=== PATIENT | female | born 1985 | race American Indian/Alaskan Native ===

== ENCOUNTER 2018-07-30 14:42 | Emergency (ER) | payer BC, OTHER ==
[2018-07-30 15:06] VITALS: BP 130/83; RESP 20; TEMP 98.2; O2SAT 99
[2018-07-30] MEDS ORDERED: Alum-Mag Hydrox-Simethicone Susp (30 mL) PO STA (15:30)
[2018-07-30] MEDS ORDERED: Alum-Mag Hydrox-Simethicone Susp (30 mL) ONE (15:35)
[2018-07-30 15:42] LABS: BASO # 0.1 K/uL (0.0-0.2); BASO % 1.2 % (0.0-2.0); EOS # 0.1 K/uL (0.0-0.7); EOS % 1.8 % (0.0-4.0); HEMOGLOBIN 11.8 g/dL (12.0-16.0); LYMPH # 2.4 K/uL (1.0-4.3); LYMPH % 44.2 % (20.0-40.0); MEAN CELL VOLUME 89.8 fl (81.0-99.0); MEAN CORPUSCULAR HEMOGLOBIN 28.9 pg (27.0-31.0); MEAN CORPUSCULAR HGB CONC 32.2 g/dL (33.0-37.0); MEAN PLATELET VOLUME 8.4 fl (7.2-11.7); MONO # 0.4 K/uL (0.0-0.8); MONO % 7.5 % (0.0-10.0); NEUT # 2.4 K/uL (1.8-7.0); NEUT % 45.3 % (50.0-75.0); NRBC % 0.1 % (0.0-0.0); RBC 4.07 Mil/uL (3.80-5.20); RED CELL DISTRIBUTION WIDTH 13.4 % (11.5-14.5); WHITE BLOOD COUNT 5.3 K/uL (4.8-10.8)
[2018-07-30 15:51] LABS: ALB/GLOB RATIO 1.1 (1.0-2.1); ALBUMIN 3.8 g/dL (3.5-5.0); ALT/SGPT 36 U/L (9-52); AST/SGOT 40 U/L (14-36); BLOOD UREA NITROGEN 15 mg/dl (7-17); CALCIUM 8.7 mg/dL (8.4-10.2); GFR NON-AFRICAN AMERICAN > 60; LIPASE 165 U/L (23-300)
--- NOTE | 2018-07-30 15:58 | ED PDOC ---
HPI: Abdomen Time Seen by Provider: 07/30/18 15:14 Chief Complaint (Nursing): Abdominal Pain Chief Complaint (Provider): Abdominal Pain History Per: Patient History/Exam Limitations: no limitations Onset/Duration Of Symptoms: Days (x11), Persistent Current Symptoms Are (Timing): Still Present Additional Complaint(s): Patient is a 33 y/o female with no significant PMHx who presents to the ED for persistent stomach pain, onset 07/20/2018 at 1:00. Patient woke up in the middle of the night with nausea that resulted in 3 episodes of vomiting. Patient states to have fainted later in the day, since has developed a loss of appetite, and has experienced 1 episode of spontaneous diarrhea. PCP: Dr. Willard Alcazar Past Medical History Reviewed: Historical Data, Nursing Documentation, Vital Signs Vital Signs: Last Vital Signs Temp 98.2 F 07/30/18 15:04 Pulse 105 H 07/30/18 15:04 Resp 20 07/30/18 15:04 BP 130/83 07/30/18 15:04 Pulse Ox 99 07/30/18 15:04 - Medical History PMH: No Chronic Diseases Denies: Chronic Kidney Disease - Surgical History Surgical History: No Surg Hx - Family History Family History: States: Diabetes (Mother) - Social History Current smoker - smoking cessation education provided: No Alcohol: Social Drugs: Denies - Immunization History Hx Tetanus Toxoid Vaccination: Yes Hx Influenza Vaccination: Yes Hx Pneumococcal Vaccination: Yes - Home Medications Home Medications: Ambulatory Orders Medication Instructions Recorded Naproxen [Naprosyn] 500 mg PO Q12H PRN #10 tablet 06/20/17 Dicyclomine [Bentyl] 20 mg PO QID PRN #20 tab 07/30/18 Famotidine [Pepcid] 40 mg PO DAILY PRN #30 tab 07/30/18 Saccharomyces Boulardi [Florastor] 500 mg PO BID #28 cap 07/30/18 - Allergies Allergies/Adverse Reactions: Allergies Allergy/AdvReac Type Severity Reaction Status Date / Time No Known Allergies Allergy Verified 06/20/17 13:20 Review of Systems ROS Statement: Except As Marked, All Systems Reviewed And Found Negative (as per HPI) Gastrointestinal: Positive for: Nausea, Vomiting, Diarrhea Physical Exam - Reviewed Nursing Documentation Reviewed: Yes Vital Signs Reviewed: Yes - Physical Exam Appears: Positive for: Well, Non-toxic, No Acute Distress Head Exam: Positive for: ATRAUMATIC, NORMOCEPHALIC Skin: Positive for: Warm, Dry Eye Exam: Positive for: EOMI, PERRL ENT: Negative for: Pharyngeal Erythema, Tonsillar Exudate Neck: Positive for: Painless ROM, Supple Cardiovascular/Chest: Positive for: Regular Rate, Rhythm. Negative for: Murmur Respiratory: Positive for: Normal Breath Sounds. Negative for: Respiratory Distress Gastrointestinal/Abdominal: Positive for: Soft, Tenderness (Diffuse, Worse in Upper Abd). Negative for: Mass, Guarding Back: Positive for: Normal Inspection. Negative for: Muscle Spasm Extremity: Positive for: Normal ROM. Negative for: Deformity - Laboratory Results Result Diagrams: 07/30/18 15:36 07/30/18 15:36 - ECG O2 Sat by Pulse Oximetry: 99 (RA) Pulse Ox Interpretation: Normal Medical Decision Making Medical Decision Making: Time: 1529 Impression: Abd Pain DDx includes but not limited to PUD, pancreatitis, hepatitis, gastroenteritis, or gall bladder disease. Plan: CMP Lipase Urine Urine Dipstick CBC Lidocaine 2% Viscous 10 ml PO [Maalox Plus 30 ml] 30 ml PO Pepcid 40 mg PO Abdomen Complete [US] Time:1555 No clinically significant lab abnormality. Accession No. : [id number] Patient Name / ID : ANTONIETA CALLOWAYAH / [id number] Exam Date : 07/30/2018 15:33:16 ( Approved ) Study Comment : Sex / Age : F / 33Y Creator : Cande Gtz Dictator : Dakota Partida MD Head Of Sales Promotion : Lining Feller Blindstitch : Dakota Partida MD Approver2 : Report Date : 07/30/2018 16:09:57 My Comment : Date of service: 07/30/2018 HISTORY: abdominal pain COMPARISON: None. TECHNIQUE: Sonographic evaluation of the abdomen. FINDINGS: LIVER: Measures cm. Normal echogenicity of the liver parenchyma. No mass. No intrahepatic bile duct dilatation. GALLBLADDER: Unremarkable. No gallstones. COMMON BILE DUCT: Measures mm. No stones. No dilatation. PANCREAS: Unremarkable as visualized. No mass. No ductal dilatation. RIGHT KIDNEY: Measures cm. Normal echogenicity. No calculus, mass, or hydronephrosis. LEFT KIDNEY: Measures cm. Normal echogenicity. No calculus, mass, or hydronephrosis. SPLEEN: Normal in size and contour. No mass. AORTA: No aneurysmal dilatation. IVC: Unremarkable. OTHER FINDINGS: None. IMPRESSION: Unremarkable abdominal sonogram. DW pt findings. Reports abdominal pain resolved. Advised bland diet, rest, f ollowup pmd. Stable for dc. Scribe Attestation: Documented by Gregorio Montiel, acting as a scribe for Dr. Niru Bender. Provider Scribe Attestation: All medical record entries made by the Scribe were at my direction and personally dictated by me. I have reviewed the chart and agree that the record accurately reflects my personal performance of the history, physical exam, medical decision making, and the department course for this patient. I have also personally directed, reviewed, and agree with the discharge instructions and disposition. Disposition - Clinical Impression Clinical Impression: Abdominal pain Counseled Patient/Family Regarding: Studies Performed, Diagnosis, Need For Followup, Rx Given - Disposition Referrals: Yogi Alcazar MD [Medical Doctor] - 08/01/18 Disposition: Routine/Home Disposition Time: 17:00 Condition: IMPROVED Prescriptions: Dicyclomine [Bentyl] 20 mg PO QID PRN #20 tab PRN Reason: abdominal pain Famotidine [Pepcid] 40 mg PO DAILY PRN #30 tab PRN Reason: reflux Saccharomyces Boulardi [Florastor] 500 mg PO BID #28 cap Instructions: Acute Abdomen (Belly Pain), Adult (DC) Forms: [facility] ED School/Work Excuse
[2018-07-30] MEDS ORDERED: Potassium Chloride 20 mEq ER Tab PO ONE ×2 (16:30→16:32)
--- NOTE | 2018-07-30 16:39 | US ---
Date of service: 07/30/2018 HISTORY: abdominal pain COMPARISON: None. TECHNIQUE: Sonographic evaluation of the abdomen. FINDINGS: LIVER: Measures cm. Normal echogenicity of the liver parenchyma. No mass. No intrahepatic bile duct dilatation. GALLBLADDER: Unremarkable. No gallstones. COMMON BILE DUCT: Measures mm. No stones. No dilatation. PANCREAS: Unremarkable as visualized. No mass. No ductal dilatation. RIGHT KIDNEY: Measures cm. Normal echogenicity. No calculus, mass, or hydronephrosis. LEFT KIDNEY: Measures cm. Normal echogenicity. No calculus, mass, or hydronephrosis. SPLEEN: Normal in size and contour. No mass. AORTA: No aneurysmal dilatation. IVC: Unremarkable. OTHER FINDINGS: None. IMPRESSION: Unremarkable abdominal sonogram.
[2018-07-30 17:46] VITALS: PULSE 85
== END 2018-07-30 17:36 | disposition home or self-care (01) ==
LOC: H.ER 14:42
DX: R10.9 Unspecified abdominal pain (principal); K85.90 Acute pancreatitis without necrosis or infection, unspecified